=== PATIENT | male | born 1975 | race African-American/Black ===

== ENCOUNTER 2019-03-18 18:42 | Emergency (ER) | payer OTHER ==
[2019-03-18] MEDS ORDERED: IBUP-1506 PO (18:52)
[2019-03-18] MEDS ORDERED: KETOROLAC TROMETHAMINE 60 MG/2 ML VIAL IM ONE (20:15)
[2019-03-18] MEDS ORDERED: METHOCARBAMOL 500 MG TABLET PO ONE (20:15)
[2019-03-18 20:52] VITALS: BP 111/65
== END 2019-03-18 21:00 | disposition home or self-care (01) ==
LOC: EMS 18:43
DX: M54.41 Lumbago with sciatica, right side (principal)
CPT/HCPCS: 96372; 99283; J1885